=== PATIENT | female | born 1955 | race African-American/Black ===

== ENCOUNTER 2016-09-15 14:33 | Emergency (ER) | payer MEDICAID ==
[2016-09-15] VITALS (9 sets, daily range): BP systolic 168–192; BP diastolic 81–101
[~2016-09-15] VITALS: Ht 160 cm; Wt 68.0 kg
--- NOTE | 2016-09-15 15:06 | Emergency Room Report ---
History of Present Illness General Chief Complaint: Pain Source: Patient Present Illness HPI Patient's 60-year-old female presented after having increased right-sided pain. Patient states that she has been having pain for several days. She reported having pain which was sharp in nature worse with ambulation. Patient reports having prior surgery to her right lower extremity. She denies any fever. She states that she does not remember exactly how the pain started. She's not know her medications. Allergies: Coded Allergies: No Known Allergies (Unverified , 09/15/16) Patient History Past Medical History: see triage record Last Menstrual Period: na Reviewed Nursing Documentation: PMH: Agreed, PSxH: Agreed Nursing Documentation-PMH Past Medical History: No History, Except For Review of Systems All Other Systems: limited - by mental status Physical Exam Vital Signs Date Time Temp Pulse Resp B/P Pulse Ox O2 Delivery O2 Flow Rate FiO2 09/15/16 14:37 97.9 112 22 194/116 99 Room Air Sp02 EP Interpretation: reviewed, normal General Appearance: normal inspection, well appearing, no apparent distress, alert, GCS 15 Head: atraumatic ENT: normal ENT inspection, hearing grossly normal, normal pharynx, normal voice, uvula midline, moist mucus membranes Neck: normal inspection, full range of motion, supple, no bony tend Respiratory: normal inspection, lungs clear, normal breath sounds, no respiratory distress, no retraction, no wheezing Cardiovascular #1: regular rate, rhythm, no edema Gastrointestinal: normal inspection, normal bowel sounds, non tender, soft, no guarding, no hernia Genitourinary: no CVA tenderness Musculoskeletal: normal inspection, back normal, normal range of motion Neurologic: normal inspection, alert, oriented x3, responsive, refrigeration engineer III-XII nml as tested, motor strength/tone normal, normal gait - antalgic gait, speech normal, other - slow speech, , grossly normal Psychiatric: mood/affect normal, depressed affect Skin: normal inspection, normal color, no rash Medical Decision Making Diagnostic Impression: Primary Impression: Altered mental status Additional Impressions: Lactic acid acidosis Hypertensive crisis, unspecified ER Course Patient presented for right side pain. Differential diagnoses include was noted to vascular occlusion, CVA, aortic dissection, Guillane barre, arthritis among others. Because of complexity of patient's case laboratory testing and imaging studies were ordered.The patient presented somewhat slow speech. However she is oriented x3. The patient is equal pupils. Vineyardist appear equal. The CT the head read by radiologist showed nonspecific periventricular white matter changes. The patient noted to have abnormal elevated blood pressure. The patient was given IV fluids. The patient noted be markedly hypertensive. She appears to be somewhat confused. The patient was given IV hydralazine for hypertension. [facility] was contacted and agreed except patient in transfer due to HMO Labs Test 09/15/16 15:05 09/15/16 15:50 09/15/16 16:30 White Blood Count 7.7 K/UL (4.8-10.8) Red Blood Count 4.25 M/UL (4.20-5.40) Hemoglobin 12.4 G/DL (12.0-16.0) Hematocrit 35.5 % (37.0-47.0) Mean Corpuscular Volume 83 FL (80-99) Mean Corpuscular Hemoglobin 29.2 PG (27.0-31.0) Mean Corpuscular Hemoglobin Concent 35.0 G/DL (32.0-36.0) Red Cell Distribution Width 13.8 % (11.6-14.8) Platelet Count 290 K/UL (150-450) Mean Platelet Volume 7.0 FL (6.5-10.1) Neutrophils (%) (Auto) 55.1 % (45.0-75.0) Lymphocytes (%) (Auto) 41.2 % (20.0-45.0) Monocytes (%) (Auto) 1.7 % (1.0-10.0) Eosinophils (%) (Auto) 0.6 % (0.0-3.0) Basophils (%) (Auto) 1.4 % (0.0-2.0) Prothrombin Time 10.7 SEC (9.30-11.50) Prothromb Time International Ratio 1.0 (0.9-1.1) Activated Partial Thromboplast Time 25 SEC (23-33) Sodium Level 144 mEQ/L (135-145) Potassium Level 3.1 mEQ/L (3.4-4.9) Chloride Level 104 mEQ/L (98-107) Carbon Dioxide Level 28 mEQ/L (20-30) Anion Gap 12 (5-15) Blood Urea Nitrogen 7 mg/dL (7-23) Creatinine 0.6 mg/dL (0.5-0.9) Estimat Glomerular Filtration Rate > 60 mL/min (>60) Glucose Level 250 mg/dL (74-106) Calcium Level 9.7 mg/dL (8.6-10.2) Magnesium Level 1.8 mg/dL (1.7-2.5) Total Bilirubin 0.3 mg/dL (0.0-1.2) Aspartate Amino Transf (AST/SGOT) 16 U/L (5-40) Alanine Aminotransferase (ALT/SGPT) 9 U/L (3-33) Alkaline Phosphatase 125 U/L (35-104) Ammonia 24 umol/L (11-51) Total Creatine Kinase 166 U/L (26-140) Creatine Kinase MB 2.6 ng/mL (< 3.8) Creatine Kinase MB Relative Index 1.5 Troponin I < 0.30 ng/mL (<=0.30) Total Protein 7.0 g/dL (6.6-8.7) Albumin 4.2 g/dL (3.5-5.2) Globulin 2.8 g/dL Albumin/Globulin Ratio 1.5 (1.0-2.7) Lipase 22 U/L (< 60) Thyroid Stimulating Hormone (TSH) 1.360 uIU/mL (0.300-4.500) Urine Color Pale yellow Urine Appearance Clear Urine pH 5 (4.5-8.0) Urine Specific [place] 1.020 (1.005-1.035) Urine Protein Negative (NEGATIVE) Urine Glucose (UA) Negative (NEGATIVE) Urine Ketones Negative (NEGATIVE) Urine Occult Blood Negative (NEGATIVE) Urine Nitrite Negative (NEGATIVE) Urine Bilirubin Negative (NEGATIVE) Urine Urobilinogen Normal MG/DL (0.0-1.0) Urine Leukocyte Esterase 1+ (NEGATIVE) Urine RBC 0-2 /HPF (0 - 2) Urine WBC 2-4 /HPF (0 - 2) Urine Squamous Epithelial Cells Few /LPF (NONE/OCC) Urine Bacteria Few /HPF (NONE) Lactic Acid Level 2.50 mmol/L (0.66-2.22) EKG Diagnostic Results Rate: normal Rhythm: NSR ST Segments: no acute changes ASA given to the pt in ED: No Rhythm Strip Diag. Results EP Interpretation: yes Rhythm: NSR, no PVC's, no ectopy Last Vital Signs Date Time Temp Pulse Resp B/P Pulse Ox O2 Delivery O2 Flow Rate FiO2 09/15/16 14:37 97.9 112 22 194/116 99 Room Air Status: unchanged Disposition: XFER SHT-TRM HOSP Condition: Serious Kody Ryder Sep 15, 2016 15:06
[2016-09-15] MEDS ORDERED: Tubing IV Cassette IV ONE (15:37)
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
[2016-09-15 15:59] LABS: BASOPHILS % (AUTO) 1.4 % (0.0-2.0); EOSINOPHILS % (AUTO) 0.6 % (0.0-3.0); LYMPHOCYTES % (AUTO) 41.2 % (20.0-45.0); MEAN CORPUSCULAR HEMOGLOBIN 29.2 PG (27.0-31.0); MEAN CORPUSCULAR VOLUME 83 FL (80-99); MONOCYTES % (AUTO) 1.7 % (1.0-10.0); NEUTROPHILS % (AUTO) 55.1 % (45.0-75.0); PLATELET COUNT 290 K/UL (150-450); RED BLOOD COUNT 4.25 M/UL (4.20-5.40); RED CELL DISTRIBUTION WIDTH 13.8 % (11.6-14.8); WHITE BLOOD COUNT 7.7 K/UL (4.8-10.8)
[2016-09-15 16:04] LABS: PROTHROMBIN TIME 10.7 SEC (9.30-11.50)
[2016-09-15 16:05] LABS: TROPONIN I < 0.30 ng/mL (<=0.30)
[2016-09-15 16:08] LABS: ALANINE AMINOTRANSFERASE 9 U/L (3-33); ALBUMIN/GLOBULIN RATIO 1.5 (1.0-2.7); ANION GAP 12 (5-15); ASPARTATE AMINO TRANSFERASE 16 U/L (5-40); CALCIUM 9.7 mg/dL (8.6-10.2); CARBON DIOXIDE 28 mEQ/L (20-30); CHLORIDE 104 mEQ/L (98-107); CREATININE 0.6 mg/dL (0.5-0.9); GLOMERULAR FILTRATION RATE > 60 mL/min (>60); HEMOLYSIS 6; LIPASE 22 U/L (< 60); MAGNESIUM 1.8 mg/dL (1.7-2.5); POTASSIUM 3.1 mEQ/L (3.4-4.9); SODIUM 144 mEQ/L (135-145)
[2016-09-15 16:09] LABS: AMMONIA 24 umol/L (11-51)
[2016-09-15 16:19] LABS: CKMB 2.6 ng/mL (< 3.8)
[2016-09-15] MEDS ORDERED: UNOBMED (16:19)
[2016-09-15 16:22] LABS: REFLEX LACTIC ACID YES OR NO YES
[2016-09-15 16:30] LABS: APPEARANCE,URINE CLEAR; KETONES,URINE NEGATIVE (NEGATIVE); LEUKOCYTE ESTERASE ,URINE 1+ (NEGATIVE); NITRITE,URINE NEGATIVE (NEGATIVE); PH,URINE 5 (4.5-8.0); PROTEIN,URINE NEGATIVE (NEGATIVE); UROBILINOGEN,URINE NORMAL MG/DL (0.0-1.0)
[2016-09-15 16:47] LABS: BACTERIA,URINE FEW /HPF; RBC,URINE 0-2 /HPF (0 - 2); SQUAMOUS EPITHELIAL CELL,UR FEW /LPF (NONE/OCC)
[2016-09-15] MEDS ORDERED: NS 55 ML IV ONE (17:42)
[2016-09-15] MEDS ORDERED: cefTRIAXone 1 GM in NS 55 ML IVPB ONE (17:45)
--- NOTE | 2016-09-16 09:03 | Diagnostic Imaging Report ---
Indication: Altered mental status Technique: Contiguous 5 mm thick transaxial imaging of the head obtained in a Siemens Sensation [address] scanner. Soft tissue and bone windows generated. Total Dose length Product (DLP): [address] Dose Index Volume (CTDIvol): 70.38 mGy Comparison: none Findings: Mild, nonspecific, white matter hypoattenuation is noted throughout the brain consistent with chronic small vessel disease. There is no midline shift, edema, acute hemorrhage, mass effect, or abnormal extra-axial fluid collections. Bones and extra osseous soft tissues are unremarkable. Impression: No acute intracranial bleed, mass effect or edema. Nonspecific white matter hypoattenuation probably due to chronic small vessel disease. The CT scanner at [facility] is accredited by the [employer] and the scans are performed using dose optimization techniques as appropriate to a performed exam including Automatic Exposure control.
== END 2016-09-15 23:20 | disposition short-term general hospital (02) ==
LOC: ENRESERVTM → ENRESERVDT → EMR 18:08
DX: R41.82 Altered mental status, unspecified (principal); E87.2 Acidosis; I16.9 Hypertensive crisis, unspecified
CPT/HCPCS: 36415; 70450; 71010; 80053; 80300; 81003; 82140; 82550; 82553; 82962; 83605; 83690; 83735; 84443; 84484; 85025; 85610; 85730; 87040; 93005; 96361; 96374; 96375; 99285; J0360; J0696; 96360; J8499